=== PATIENT | male | born 1960 | race Two or more races ===

== ENCOUNTER → 2016-11-25 | Outpatient (CLI) | payer OTHER ==
[~2016-11-25] MED LIST: HYDR-2666 PO; IBUP-1060 PO; PANT40TA5 PO; PROC5TAB14 PO; TRAM50TA PO
--- NOTE | 2016-11-25 13:38 | RAD ---
Metastatic skeletal survey, 11/25/2016: History: Multiple myeloma Multiple images of the bony skeleton were obtained with the following findings are delineated: 1. And AP view of the chest demonstrates a normal size heart. The left hemidiaphragm is mildly elevated. No pulmonary infiltrate is seen. No lytic rib lesion is evident. 2. AP and lateral views of the spine demonstrate multiple lumbar and thoracic vertebral compression deformities with vertebroplasty change at T8, T12, L1, L3 and L5. There is also mild loss of height of the T10, T11 and L2 vertebral bodies. The vertebroplasty changes as well as the L2, L1 and T12 vertebral compression deformities are new since MR images from 09/02/2013. There are mild scattered degenerative changes in the cervical, thoracic and lumbar spine. There is generalized bony demineralization. 3. A lateral view of the skull demonstrates multiple tiny scattered calvarial lucencies. 4. An AP view of the pelvis reveals no fracture or destructive lesion. 5. AP views of both humeri and forearms demonstrate no lytic lesions. 6. AP views of both femur is in lower legs demonstrate no lytic lesions. IMPRESSION: 1. Demineralization. 2. Multiple thoracic and lumbar vertebral compression fractures with vertebroplasty change at several levels. 3. Tiny calvarial lucencies. 4. No long bone abnormality is detected.
== END | disposition home or self-care (01) ==
LOC: RAD 12:00
PROVIDERS: ATTEND Internal Medicine Hematology & Oncology
DX: C90.00 Multiple myeloma not having achieved remission (principal); M47.896 Other spondylosis, lumbar region; M47.894 Other spondylosis, thoracic region; M48.56XA Collapsed vertebra, not elsewhere classified, lumbar region, initial encounter for fracture; M48.54XA Collapsed vertebra, not elsewhere classified, thoracic region, initial encounter for fracture; Q79.1 Other congenital malformations of diaphragm
CPT/HCPCS: 77075

== ENCOUNTER → 2017-12-04 | Outpatient (CLI) | payer MEDICARE | END | disposition home or self-care (01) | LOC: RAD 11:46 | DX: C90.00 Multiple myeloma not having achieved remission (principal); M50.30 Other cervical disc degeneration, unspecified cervical region | CPT/HCPCS: 77075 ==